=== PATIENT | female | born 2000 | race Caucasian/White ===

== ENCOUNTER 2018-02-03 11:15 | Emergency (ER) | payer OTHER, SELFPAY ==
[2018-02-03] MEDS ORDERED: CODEINE 30MG/APAP 300MG TAB ONE (15:45)
--- NOTE | 2018-02-03 16:43 | RAD REPORT ---
EXAM DESCRIPTION: RAD - Ankle Left 3 View - 02/03/2018 3:57 pm CLINICAL HISTORY: Fall, left ankle pain COMPARISON: None. FINDINGS: No acute fracture or dislocation is seen.
--- NOTE | 2018-02-03 17:09 | EDPHYS ---
Physician Documentation [facility] Name: Lashay Donato Age: 17 yrs Sex: Female : 2000 Arrival Date: 02/03/2018 Time: 11:19 Bed 10 Private MD: None, None ED Physician Jesse Ross HPI: 02/03 16:00 This 17 yrs old Female presents to ER via Ambulatory with complaints of Left pm1 ankle pain. 16:00 The patient presents with pain, that is acute. The complaints affect the left ankle. pm1 Onset: The symptoms/episode began/occurred yesterday. Context: The problem was sustained outdoors, resulted from Stepping in hole, The mechanism of injury involved hyperdorsiflexion of the affected ankle. The patient can partially bear weight on the affected extremity. Associated signs and symptoms: Pertinent negatives: calf tenderness, numbness, swelling, tingling. Modifying factors: The symptoms are alleviated by nothing, the symptoms are aggravated by weight bearing, movement. Severity of symptoms: in the emergency department the symptoms are actually worse. The patient has not experienced similar symptoms in the past. The patient has not recently seen a physician. 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 - Social history:: Smoking status: Patient/guardian denies using tobacco. - Ebola Screening: : No symptoms or risks identified at this time. ROS: 16:00 Constitutional: Negative for fever, chills, and weight loss, Eyes: Negative for injury, pm1 pain, redness, and discharge, ENT: Negative for injury, pain, and discharge, Neck: Negative for injury, pain, and swelling, Cardiovascular: Negative for chest pain, palpitations, and edema, Respiratory: Negative for shortness of breath, cough, wheezing, and pleuritic chest pain, Abdomen/GI: Negative for abdominal pain, nausea, vomiting, diarrhea, and constipation, Back: Negative for injury and pain. 16:00 Skin: Negative for injury, rash, and discoloration, Neuro: Negative for headache, weakness, numbness, tingling, and seizure. 16:00 MS/extremity: Positive for pain, of the left Achilles. Exam: 16:00 Constitutional: This is a well developed, well nourished patient who is awake, alert, pm1 and in no acute distress. Head/Face: Normocephalic, atraumatic. Neck: Trachea midline, no thyromegaly or masses palpated, and no cervical lymphadenopathy. Supple, full range of motion without nuchal rigidity, or vertebral point tenderness. No Meningismus. Chest/axilla: Normal chest wall appearance and motion. Nontender with no deformity. No lesions are appreciated. Cardiovascular: Regular rate and rhythm with a normal S1 and S2. No gallops, murmurs, or rubs. Normal PMI, no JVD. No pulse deficits. Respiratory: Lungs have equal breath sounds bilaterally, clear to auscultation and percussion. No rales, rhonchi or wheezes noted. No increased work of breathing, no retractions or nasal flaring. Back: No spinal tenderness. No costovertebral tenderness. Full range of motion. Skin: Warm, dry with normal turgor. Normal color with no rashes, no lesions, and no evidence of cellulitis. 16:00 Musculoskeletal/extremity: Extremities: grossly normal except: noted in the left Achilles: tenderness, There is no evidence of decreased ROM, deformity, Circulation is intact in all extremities. 16:00 Neuro: Orientation: is normal, Motor: moves all fours. Vital Signs: 11:36 BP 141 / 69; Pulse 72; Resp 20; Temp 97.5; Pulse Ox 98% on R/A; Weight 72.57 kg; Height aj 5 ft. 5 in. (165.10 cm); 16:44 BP 101 / 67; Pulse 61; Resp 18; Pulse Ox 99% ; sv 11:36 Body Mass Index 26.63 (72.57 kg, 165.10 cm) aj Procedures: 17:00 Splinting: Splint applied to left ankle using Air Cast, applied by nurse. Examined by pm1 sc, post splint application: neurovascular intact, 2+ distal pulses palpable, brisk capillary refill noted, Patient tolerated well. MDM: 15:36 Patient medically screened. pm1 17:06 Data reviewed: vital signs. Data interpreted: Pulse oximetry: on room air is 99 %. pm1 Interpretation: normal. Counseling: I had a detailed discussion with the patient and/or guardian regarding: the historical points, exam findings, and any diagnostic results supporting the discharge/admit diagnosis, radiology results, the need for outpatient follow up, a orthopedic surgeon, to return to the emergency department if symptoms worsen or persist or if there are any questions or concerns that arise at home. 02/03 15:52 Order name: Ankle Left 3 View; Complete Time: 16:56 EDNV 02/03 15:40 Order name: Crutches; Complete Time: 17:31 pm1 02/03 15:40 Order name: Aircast Ankle Splint; Complete Time: 17:31 pm1 Administered Medications: 15:47 Drug: Tylenol #3 (300 mg-30 mg) 1 tablet Route: PO; aa5 17:31 Follow up: Response: No adverse reaction sv Disposition: 19:18 Co-signature as Attending Physician, Jesse Ross MD I agree with the assessment and kdr plan of care. Disposition: 02/03/18 17:08 Discharged to Home. Impression: Strain of Achilles tendon. - Condition is Stable. - Discharge Instructions: Cast or Splint Care, Crutch Use, Ankle Pain. - Prescriptions for Naprosyn 500 mg Oral Tablet - take 1 tablet by ORAL route 2 times per day take with food; 30 tablet. Tylenol- Codeine #3 300-30 mg Oral Tablet - take 1 tablet by ORAL route every 6 hours As needed; 15 tablet. - Work release form, Medication Reconciliation Form, Thank You Letter, Prescription Opioid Use form. - Follow up: Emergency Department; When: As needed; Reason: Worsening of condition. Follow up: Casper Brar MD; When: 2 - 3 days; Reason: Recheck today's complaints, Continuance of care, Re-evaluation by your physician. - Problem is new. - Symptoms have improved. Signatures: Dispatcher [employer] [facility] Maggy Tompkins RN RN sv Myers, Amanda, RN RN aj Rittger, Kevin, MD MD kdr Calderon, Audri, RN RN aa5 Martín Michael NP RESIDENTIAL REAL ESTATE ASSISTANT pm1 Corrections: (The following items were deleted from the chart) 15:52 15:41 Ankle Right 3 View+RAD.RAD.BRZ ordered. [facility] 17:11 17:08 02/03/2018 17:08 Discharged to Home. Impression: Strain of Achilles tendon. pm1 Condition is Stable. Forms are Medication Reconciliation Form, Thank You Letter, Antibiotic Education, Prescription Opioid Use. Follow up: Emergency Department; When: As needed; Reason: Worsening of condition. Follow up: Private Physician; When: 2 - 3 days; Reason: Recheck today's complaints, Continuance of care, Re-evaluation by your physician. Problem is new. Symptoms have improved. pm1 17:32 17:11 02/03/2018 17:08 Discharged to Home. Impression: Strain of Achilles tendon. sv Condition is Stable. Discharge Instructions: Ankle Pain, Crutch Use, Cast or Splint Care. Prescriptions for Naprosyn 500 mg Oral Tablet - take 1 tablet by ORAL route 2 times per day take with food; 30 tablet, Tylenol-Codeine #3 300-30 mg Oral Tablet - take 1 tablet by ORAL route every 6 hours As needed; 15 tablet. and Forms are Medication Reconciliation Form, Thank You Letter, Prescription Opioid Use. Follow up: Emergency Department; When: As needed; Reason: Worsening of condition. Follow up: Dr. Casper Brar; When: 2 - 3 days; Reason: Recheck today's complaints, Continuance of care, Re-evaluation by your physician. Problem is new. Symptoms have improved. pm1
--- NOTE | 2018-02-03 17:09 | ER ---
Nurse's Notes [facility] Name: Lashay Donato Age: 17 yrs Sex: Female : 2000 Arrival Date: 02/03/2018 Time: 11:19 Bed 10 Private MD: None, None Diagnosis: Strain of Achilles tendon Presentation: 02/03 11:34 Presenting complaint: Patient states: Reports pain to heel and posterior left ankle aj after stepping into a hole today. Patient reports discomfort to Achilles tendon. Transition of care: patient was not received from another setting of care. Onset of symptoms was February 03, 2018. Care prior to arrival: None. 11:34 Method Of Arrival: Ambulatory aj 11:34 Acuity: FARAZ 4 aj 14:50 Risk Assessment: Do you want to hurt yourself or someone else? Patient reports no aa5 desire to harm self or others. Initial Sepsis Screen: Does the patient meet any 2 criteria? No. Patient's initial sepsis screen is negative. Does the patient have a suspected source of infection? No. Patient's initial sepsis screen is negative. Triage Assessment: 11:36 General: Appears in no apparent distress. comfortable, Behavior is calm, cooperative, aj appropriate for age. Neuro: Level of Consciousness is awake, alert, obeys commands, Oriented to person, place, time, situation, Appropriate for age. Respiratory: Airway is patent Respiratory effort is even, unlabored, Respiratory pattern is regular, symmetrical. Derm: Skin is pink, warm \T\ dry. normal. 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 - Social history:: Smoking status: Patient/guardian denies using tobacco. - Ebola Screening: : No symptoms or risks identified at this time. Screenin:50 Abuse screen: Denies threats or abuse. Nutritional screening: No deficits noted. aa5 Tuberculosis screening: No symptoms or risk factors identified. Fall Risk None identified. Assessment: 14:50 General: Appears comfortable, Behavior is calm, cooperative. Pain: Complains of pain in aa5 left Achilles Pain currently is 8 out of 10 on a pain scale. Quality of pain is described as tender, Is continuous, Aggravated by increased activity, weight bearing. Neuro: Level of Consciousness is awake, alert, obeys commands, Oriented to person, place, time, situation. Cardiovascular: Heart tones S1 S2 present Rhythm is regular. Respiratory: Airway is patent Respiratory effort is even, unlabored, Respiratory pattern is regular, symmetrical. GI: No signs and/or symptoms were reported involving the gastrointestinal system. : No signs and/or symptoms were reported regarding the genitourinary system. EENT: No signs and/or symptoms were reported regarding the EENT system. Derm: Skin is pink, warm \T\ dry. Musculoskeletal: Range of motion: intact in all extremities. 16:44 Reassessment: Patient appears in no apparent distress at this time. No changes from sv previously documented assessment. Patient and/or family updated on plan of care and expected duration. Pain level reassessed. Patient is alert, oriented x 3, equal unlabored respirations, skin warm/dry/pink. 17:31 Reassessment: Patient appears in no apparent distress at this time. Patient and/or sv family updated on plan of care and expected duration. Pain level reassessed. Patient is alert, oriented x 3, equal unlabored respirations, skin warm/dry/pink. Vital Signs: 11:36 BP 141 / 69; Pulse 72; Resp 20; Temp 97.5; Pulse Ox 98% on R/A; Weight 72.57 kg; Height aj 5 ft. 5 in. (165.10 cm); 16:44 BP 101 / 67; Pulse 61; Resp 18; Pulse Ox 99% ; sv 11:36 Body Mass Index 26.63 (72.57 kg, 165.10 cm) aj ED Course: 11:19 Patient arrived in ED. mr 11:20 None, None is Private Physician. mr 11:36 Triage completed. aj 11:36 Arm band placed on left wrist. Patient placed in waiting room, Patient notified of wait aj time. 14:50 Patient has correct armband on for positive identification. aa5 14:51 Kathryn Ramirez, JOSH is Primary Nurse. aa5 15:05 Martín Michael NP is PHCP. pm1 15:05 Jesse Ross MD is Attending Physician. pm1 15:53 X-ray completed. Portable x-ray completed in exam room. Patient tolerated procedure bb2 well. 15:54 Ankle Left 3 View In Process Unspecified. EDMS 17:11 Casper Brar MD is Referral Physician. pm1 17:25 Crutch training done. Air stirrup applied to left ankle. sv 17:31 No provider procedures requiring assistance completed. Patient did not have IV access sv during this emergency room visit. Administered Medications: 15:47 Drug: Tylenol #3 (300 mg-30 mg) 1 tablet Route: PO; aa5 17:31 Follow up: Response: No adverse reaction sv Outcome: 17:08 Discharge ordered by . pm1 17:32 Discharged to home via wheelchair, with crutches, with family. sv 17:32 Condition: stable 17:32 Discharge instructions given to patient, Instructed on discharge instructions, follow up and referral plans. no drinking with medication, no driving heavy equipment, medication usage, crutch walking, Demonstrated understanding of instructions, follow-up care, medications, crutch walking, Prescriptions given X 2. 17:32 Patient left the ED. sv Signatures: Dispatcher [employer] [facility] Maggy Tompkins, RN Etelvina Ramirez RN Jaimie Zavaleta Audri RN JOSH aa5 Martín Michael, SHAINA LEVEL VIAL MARKER pm1 Maria G Momin bb2
== END 2018-02-03 17:32 | disposition home or self-care (01) ==
LOC: ER 11:15
DX: S86.012A Strain of left Achilles tendon, initial encounter (principal); W17.89XA Other fall from one level to another, initial encounter; Y93.9 Activity, unspecified
CPT/HCPCS: 99284

== ENCOUNTER 2018-11-09 02:09 | Emergency (ER) | payer SELFPAY ==
[2018-11-09 02:55] LABS: Absolute Monocytes 0.6 K/uL (0.1-1.3); Eosinophils % 10.9 % (0-4.4); Hematocrit 39.7 % (36.0-45.0); Lymphocytes % 39.9 % (15.3-44.8); MPV 8.6 fL (7.6-11.3); Monocytes % 8.3 % (3.3-12.3); RBC Red Blood Cell Count 4.47 M/uL (3.86-4.86)
[2018-11-09] MEDS ORDERED: KETOROLAC 30 MG/ML INJ ONE (03:02)
[2018-11-09 03:04] LABS: Barbiturates NEGATIVE (NEGATIVE); Benzodiazepines NEGATIVE (NEGATIVE); Cocaine NEGATIVE (NEGATIVE); METHAMPHETAM NEGATIVE (NEGATIVE); Methadone NEGATIVE (NEGATIVE); Opiates NEGATIVE (NEGATIVE); Phencyclidine NEGATIVE (NEGATIVE); THC Cannibis NEGATIVE (NEGATIVE)
[2018-11-09 03:17] LABS: ALT/SGPT 21 U/L (12-78); AST/SGOT 13 U/L (15-37); Albumin 4.1 g/dL (3.4-5.0); Alkaline Phosphatase 62 U/L (45-117); BUN Blood Urea Nitrogen 11 mg/dL (7-18); Bicarbonate 27 mmol/L (21-32); Bilirubin Direct < 0.1 mg/dL (0-0.2); Bilirubin Total 0.3 mg/dL (0.2-1.0); Glucose Level 117 mg/dL (74-106); Lipase 99 U/L (73-393); Potassium 3.7 mmol/L (3.5-5.1); Protein, Total 7.3 g/dL (6.4-8.2); Sodium Level 141 mmol/L (136-145)
--- NOTE | 2018-11-09 04:08 | ER ---
Nurse's Notes [facility] Name: Lashay Donato Age: 18 yrs Sex: Female : 2000 Arrival Date: 11/09/2018 Time: 02:13 Bed 18 Private MD: None, None Diagnosis: Palpitations;Temporomandibular joint disorder, unspecified;Upper abdominal pain, unspecified Presentation: 11/09 02:23 Presenting complaint: Patient states: RUQ abd cramping intermittent X2 days. pt c/o ak1 palpitations. pt stated she woke up with her "jaw locked". Transition of care: patient was not received from another setting of care. Onset of symptoms was November 09, 2018. Risk Assessment: Do you want to hurt yourself or someone else? Patient reports no desire to harm self or others. Initial Sepsis Screen: Does the patient meet any 2 criteria? No. Patient's initial sepsis screen is negative. Does the patient have a suspected source of infection? No. Patient's initial sepsis screen is negative. Care prior to arrival: None. 02:23 Method Of Arrival: Ambulatory ak1 02:23 Acuity: FARAZ 4 ak1 Triage Assessment: 02:25 General: Appears in no apparent distress. Behavior is cooperative. 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 - Social history:: Smoking status: Patient/guardian denies using tobacco. - Ebola Screening: : No symptoms or risks identified at this time. Screenin:28 Abuse screen: Denies threats or abuse. Denies injuries from another. Nutritional ak1 screening: No deficits noted. Tuberculosis screening: No symptoms or risk factors identified. Fall Risk None identified. Assessment: 02:30 General: Appears in no apparent distress. comfortable, Behavior is calm, cooperative, rr5 appropriate for age. Pain: Complains of pain in abdomen (RUQ) Pain does not radiate. Pain currently is 7 out of 10 on a pain scale. Quality of pain is described as crampy, Pain began 2-3 days ago. Is intermittent. Neuro: Level of Consciousness is awake, alert, obeys commands, Oriented to person, place, time, situation, Appropriate for age. Cardiovascular: Reports palpitations, since last attack 2200 last night lasted 10-15 seconds Capillary refill < 3 seconds Patient's skin is warm and dry. Respiratory: Airway is patent Respiratory effort is even, unlabored, Respiratory pattern is regular, symmetrical. GI: Abdomen is flat, Bowel sounds present X 4 quads. Abd is soft and non tender. : EENT: Reports unable to open fully her mouth.. Derm: Skin is intact, Skin temperature is warm Reports nail injury 2 days ago during nail cleaning. Musculoskeletal: Capillary refill < 3 seconds, Range of motion: intact in all extremities, limited in all extremities. 03:30 Reassessment: Patient appears in no apparent distress at this time. Patient is alert, rr5 oriented x 3, equal unlabored respirations, skin warm/dry/pink. Patient states feeling better. Patient states symptoms have improved. Pain: Complains of pain in RUQ Pain does not radiate. Pain currently is 3 out of 10 on a pain scale. Quality of pain is described as crampy, Pain began 2-3 days ago. Is intermittent. 04:20 Reassessment: Patient appears in no apparent distress at this time. Patient is alert, rr5 oriented x 3, equal unlabored respirations, skin warm/dry/pink. discharge instruction given and explained without complaints made. Patient states feeling better. Patient states symptoms have improved. Vital Signs: 02:25 BP 148 / 71; Pulse 82; Resp 16; Temp 98.6(O); Pulse Ox 100% on R/A; Weight 70.31 kg ak1 (R); Height 5 ft. 5 in. (165.10 cm) (R); Pain 7/10; 03:00 BP 129 / 77; Pulse 74; Resp 16; Pulse Ox 99% ; rr5 04:20 BP 123 / 71; Pulse 75; Resp 17; Pulse Ox 99% ; rr5 02:25 Body Mass Index 25.79 (70.31 kg, 165.10 cm) ak1 ED Course: 02:13 Patient arrived in ED. es 02:14 None, None is Private Physician. es 02:17 Glenn Quinones, RN is Primary Nurse. rr5 02:25 Triage completed. ak1 02:25 Arm band placed on Patient placed in an exam room, on a stretcher, on pulse oximetry, ak1 Patient notified of wait time. 02:28 Patient has correct armband on for positive identification. Bed in low position. Call ak1 light in reach. Side rails up X 1. Pulse ox on. NIBP on. 02:29 Justin Lozano MD is Attending Physician. tw4 02:50 Inserted saline lock: 20 gauge in right forearm, using aseptic technique. Blood rr5 collected. 03:00 media monitor on. rr5 04:22 No provider procedures requiring assistance completed. IV discontinued, intact, rr5 bleeding controlled, No redness/swelling at site. Pressure dressing applied. Administered Medications: 02:52 Drug: TORadol 30 mg Route: IVP; Site: right forearm; rr5 04:23 Follow up: Response: No adverse reaction rr5 Outcome: 04:07 Discharge ordered by . tw4 04:22 Discharged to home ambulatory. rr5 04:22 Condition: stable 04:22 Discharge instructions given to patient, Instructed on discharge instructions, follow up and referral plans. medication usage, Demonstrated understanding of instructions, follow-up care, medications, Prescriptions given X 1. 04:24 Patient left the ED. rr5 Signatures: Ciera Parada Amber RN RN ak1 Justin Lozano MD MD tw4 Glenn Quinones RN RN rr5
--- NOTE | 2018-11-09 04:08 | EDPHYS ---
Physician Documentation [facility] Name: Lashay Donato Age: 18 yrs Sex: Female : 2000 Arrival Date: 11/09/2018 Time: 02:13 Bed 18 Private MD: None, None ED Physician Justin Lozano HPI: 11/09 06:31 This 18 yrs old Female presents to ER via Ambulatory with complaints of tw4 Abdominal Pain, unablle to open mouth wide, heart raceing. 06:31 The patient presents with abdominal pain in the upper abdomen. Onset: The tw4 symptoms/episode began/occurred just prior to arrival, and improved. The symptoms do not radiate. Associated signs and symptoms: Pertinent positives: palpitations. The symptoms are described as dull. Modifying factors: The symptoms are alleviated by nothing, the symptoms are aggravated by nothing. Severity of pain: At its worst the pain was mild in the emergency department the pain has resolved. The patient has not experienced similar symptoms in the past. CLINIC ASSISTANT: 02:25 LMP 10/30/2018 ak1 Historical: - Allergies: 02:25 NKA; ak1 - Home Meds: 02:25 None [Active]; ak1 - PMHx: 02:25 None; ak1 - PSHx: 02:25 None; ak1 - Immunization history:: Adult Immunizations up to date. - Social history:: Smoking status: Patient/guardian denies using tobacco. - Ebola Screening: : No symptoms or risks identified at this time. ROS: 06:31 Constitutional: Negative for fever, chills, and weight loss, Eyes: Negative for injury, tw4 pain, redness, and discharge, Respiratory: Negative for shortness of breath, cough, wheezing, and pleuritic chest pain, Back: Negative for injury and pain, MS/Extremity: Negative for injury and deformity, Skin: Negative for injury, rash, and discoloration, Neuro: Negative for headache, weakness, numbness, tingling, and seizure. 06:31 Cardiovascular: Positive for palpitations, Negative for chest pain, edema, orthopnea. 06:31 Abdomen/GI: Positive for abdominal pain, Negative for nausea and vomiting, nausea, vomiting, and diarrhea, nausea, vomiting, diarrhea, abdominal cramps, anorexia, dysphagia, hematemesis, black/tarry stool, rectal pain, rectal bleeding, bowel incontinence. Exam: 06:31 Constitutional: This is a well developed, well nourished patient who is awake, alert, tw4 and in no acute distress. Head/Face: Normocephalic, atraumatic. Chest/axilla: Normal chest wall appearance and motion. Nontender with no deformity. No lesions are appreciated. Cardiovascular: Regular rate and rhythm with a normal S1 and S2. No gallops, murmurs, or rubs. Normal PMI, no JVD. No pulse deficits. Respiratory: Lungs have equal breath sounds bilaterally, clear to auscultation and percussion. No rales, rhonchi or wheezes noted. No increased work of breathing, no retractions or nasal flaring. Abdomen/GI: Soft, non-tender, with normal bowel sounds. No distension or tympany. No guarding or rebound. No evidence of tenderness throughout. Back: No spinal tenderness. No costovertebral tenderness. Full range of motion. MS/ Extremity: Pulses equal, no cyanosis. Neurovascular intact. Full, normal range of motion. Neuro: Awake and alert, GCS 15, oriented to person, place, time, and situation. Cranial nerves II-XII grossly intact. Motor strength 5/5 in all extremities. Sensory grossly intact. Cerebellar exam normal. Normal gait. Vital Signs: 02:25 BP 148 / 71; Pulse 82; Resp 16; Temp 98.6(O); Pulse Ox 100% on R/A; Weight 70.31 kg ak1 (R); Height 5 ft. 5 in. (165.10 cm) (R); Pain 7/10; 03:00 BP 129 / 77; Pulse 74; Resp 16; Pulse Ox 99% ; rr5 04:20 BP 123 / 71; Pulse 75; Resp 17; Pulse Ox 99% ; rr5 02:25 Body Mass Index 25.79 (70.31 kg, 165.10 cm) ak1 MDM: 02:29 Patient medically screened. tw4 06:33 Differential diagnosis: appendicitis, bowel obstruction, cholecystitis, Cholelithiasis, tw4 Hepatitis, Peritonitis, Ureterolithiasis, urinary tract infection. Data reviewed: vital signs, nurses notes. Data interpreted: air sampling and monitoring:. Counseling: I had a detailed discussion with the patient and/or guardian regarding: the historical points, exam findings, and any diagnostic results supporting the discharge/admit diagnosis. Special discussion: Based on the patient's Hx, exam, and Dx evaluation, there is no indication for emergent surgery or inpatient Tx. It is understood by the patient/guardian that if the Sx's persist or worsen they need to return immediately for re-evaluation. I discussed with the patient/guardian in detail that at this point there is no indication for admission to the hospital. It is understood, however, that if the symptoms persist or worsen the patient needs to return immediately for re-evaluation. 11/09 02:30 Order name: Basic Metabolic Panel; Complete Time: 04:03 11/09 04:03 Interpretation: Normal except: GLUC 117; GFR 88. 11/09 02:30 Order name: CBC with Diff; Complete Time: 04:03 11/09 04:03 Interpretation: Normal except: RDW 12.0; EOSINOPHIL % 10.9; VERO% 39.9. 11/09 02:30 Order name: Creatinine for Radiology; Complete Time: 04:03 11/09 04:03 Interpretation: Within normal limits. 11/09 02:30 Order name: Hepatic Function; Complete Time: 04:03 11/09 04:03 Interpretation: Normal except: AST 13. 11/09 02:30 Order name: Lipase; Complete Time: 04:03 11/09 04:03 Interpretation: Within normal limits: LIP 99. 11/09 02:30 Order name: Urine Drug Screen; Complete Time: 04:03 11/09 02:30 Order name: IV Saline Lock; Complete Time: 02:57 11/09 02:30 Order name: Labs collected and sent; Complete Time: 02:57 11/09 02:30 Order name: EKG - Nurse/Tech; Complete Time: 02:46 11/09 03:46 Order name: Urine Dipstick--Ancillary (enter results) 11/09 03:46 Order name: Urine --Ancillary (enter results) EC:31 Rate is 80 beats/min. Rhythm is regular with Occasional PVCs. QRS [place] is Normal. GA tw4 interval is normal. QRS interval is normal. QT interval is normal. T waves are Normal. No ST changes noted. Clinical impression: Sinus arrythmia. Interpreted by me. Reviewed by me. Administered Medications: 02:52 Drug: TORadol 30 mg Route: IVP; Site: right forearm; rr5 04:23 Follow up: Response: No adverse reaction rr5 Disposition: 11/09/18 04:07 Discharged to Home. Impression: Palpitations, Temporomandibular joint disorder, unspecified, Upper abdominal pain, unspecified. - Condition is Stable. - Discharge Instructions: Abdominal Pain, Adult, Palpitations. - Prescriptions for Bentyl 20 mg Oral Tablet - take 1 tablet by ORAL route every 6 hours As needed; 20 tablet. - Medication Reconciliation Form, Thank You Letter, Antibiotic Education, Prescription Opioid Use form. - Follow up: Private Physician; When: Upon discharge from the Emergency Department; Reason: If symptoms return, Recheck today's complaints, Continuance of care. - Problem is new. - Symptoms have improved. Signatures: Dispatcher [employer] EDMS Sonja Peterson RN RN ak1 Justin Lozano MD MD tw4 Glenn Quinones RN RN rr5 Corrections: (The following items were deleted from the chart) 04:24 04:07 11/09/2018 04:07 Discharged to Home. Impression: Palpitations; Temporomandibular rr5 joint disorder, unspecified; Upper abdominal pain, unspecified. Condition is Stable. Forms are Medication Reconciliation Form, Thank You Letter, Antibiotic Education, Prescription Opioid Use. Follow up: Private Physician; When: Upon discharge from the Emergency Department; Reason: If symptoms return, Recheck today's complaints, Continuance of care. Problem is new. Symptoms have improved. tw4
[2018-11-09 05:07] LABS: Urine Blood NEGATIVE (NEG); Urine Glucose NEGATIVE (NEG); Urine Protein NEGATIVE (NEG); Urine Specific Gravity 1.025 (1.005-1.030)
--- NOTE | 2018-11-09 10:57 | EKG ---
Test Date: 2018-11-09 Test Time: 02:35:41 Food Analyst: ROSIE MEASUREMENT RESULTS: Intervals: Rate: 80 AZ: 154 QRSD: 90 QT: 352 QTc: 405 Brady: P: 62 AZ: 154 QRS: 81 T: 55 INTERPRETIVE STATEMENTS: Sinus rhythm with sinus arrhythmia with occasional premature ventricular complexes Otherwise normal ECG Compared to ECG 05/12/2013 09:10:19 Ventricular premature complex(es) now present Electronically Signed On 11-09-18 10:56:28 [employer] by Bryan Lynn
== END 2018-11-09 04:24 | disposition home or self-care (01) ==
LOC: ER 02:09
DX: R10.10 Upper abdominal pain, unspecified (principal); R00.2 Palpitations; M26.609 Unspecified temporomandibular joint disorder, unspecified side
CPT/HCPCS: 36415; 80048; 80076; 80307; 81003; 81025; 83690; 85025; 93005; 96374; 99284

== ENCOUNTER 2019-04-16 22:28 | Emergency (ER) | payer SELFPAY ==
[2019-04-16] MEDS ORDERED: MORPHINE 4 MG/ML SYR ONE (23:04)
[2019-04-16] MEDS ORDERED: ONDANSETRON 4 MG/2 ML VIAL ONE (23:04)
[2019-04-16 23:20] LABS: Urine Blood NEGATIVE (NEG); Urine Glucose NEGATIVE (NEG); Urine Protein NEGATIVE (NEG); Urine pH 7.5 (5.0-7.0)
[2019-04-16 23:25] LABS: Urine Bacteria <20 /HPF (<20); Urine Culture Reflex Order NOT NEEDED; Urine RBC <5 /HPF (NONE SEEN)
[2019-04-16 23:40] LABS: Absolute Lymphocytes (CBC) 2.7 K/uL (0.7-4.9); Basophils % 0.8 % (0-1.3); Hematocrit 39.2 % (36.0-45.0); Lymphocytes % 40.2 % (15.3-44.8); MPV 9.1 fL (7.6-11.3); RBC Red Blood Cell Count 4.39 M/uL (3.86-4.86)
[2019-04-16 23:59] LABS: ALT/SGPT 22 U/L (12-78); AST/SGOT 17 U/L (15-37); Albumin 4.5 g/dL (3.4-5.0); Alkaline Phosphatase 69 U/L (45-117); BUN Blood Urea Nitrogen 8 mg/dL (7-18); Bicarbonate 27 mmol/L (21-32); Bilirubin Direct < 0.1 mg/dL (0-0.2); Bilirubin Total 0.2 mg/dL (0.2-1.0); Glucose Level 76 mg/dL (74-106); Lipase 105 U/L (73-393); Potassium 3.4 mmol/L (3.5-5.1); Protein, Total 8.1 g/dL (6.4-8.2); Sodium Level 140 mmol/L (136-145)
[2019-04-17 00:45] LABS: Blood Morphology Comment NOT SEEN (NOT SEEN); Platelet Estimate ADEQ; Urine White Blood Cell Casts OK
--- NOTE | 2019-04-17 02:15 | EDPHYS ---
Physician Documentation [facility] Name: Lashay Donato Age: 18 yrs Sex: Female : 2000 Arrival Date: 04/16/2019 Time: 22:36 Bed 8 Private MD: ED Physician Derik Armenta HPI: 04/17 00:23 This 18 yrs old Female presents to ER via Ambulatory with complaints of jr8 Abdominal Pain. 00:23 The patient presents with abdominal pain in the periumbilical area. Onset: The jr8 symptoms/episode began/occurred gradually, 3 day(s) ago. The symptoms radiate to back. Associated signs and symptoms: Pertinent positives: nausea. The symptoms are described as shooting, stabbing. Modifying factors: The symptoms are alleviated by nothing, the symptoms are aggravated by nothing. Severity of pain: At its worst the pain was moderate in the emergency department the pain is unchanged. The patient has not experienced similar symptoms in the past. The patient has not recently seen a physician. Historical: - Allergies: 04/16 22:58 NKA; ea - Home Meds: 22:58 None [Active]; ea - PMHx: 22:58 None; ea - PSHx: 22:58 None; ea - Immunization history:: Adult Immunizations up to date. - Social history:: Smoking status: Patient/guardian denies using tobacco. - Ebola Screening: : No symptoms or risks identified at this time. ROS: 04/17 00:23 Eyes: Negative for injury, pain, redness, and discharge, ENT: Negative for injury, jr8 pain, and discharge, Neck: Negative for injury, pain, and swelling, Cardiovascular: Negative for chest pain, palpitations, and edema, Respiratory: Negative for shortness of breath, cough, wheezing, and pleuritic chest pain, Back: Negative for injury and pain, MS/Extremity: Negative for injury and deformity, Skin: Negative for injury, rash, and discoloration, Neuro: Negative for headache, weakness, numbness, tingling, and seizure. Abdomen/GI: Positive for abdominal pain, nausea, Negative for vomiting, diarrhea, constipation, abdominal cramps, abdominal distension, anorexia, dysphagia, hematemesis, black/tarry stool, rectal pain, rectal bleeding, bowel incontinence, flatulence. Exam: 00:23 Eyes: Pupils equal round and reactive to light, extra-ocular motions intact. Lids and jr8 lashes normal. Conjunctiva and sclera are non-icteric and not injected. Cornea within normal limits. Periorbital areas with no swelling, redness, or edema. ENT: Nares patent. No nasal discharge, no septal abnormalities noted. Tympanic membranes are normal and external auditory canals are clear. Oropharynx with no redness, swelling, or masses, exudates, or evidence of obstruction, uvula midline. Mucous membranes moist. Neck: Trachea midline, no thyromegaly or masses palpated, and no cervical lymphadenopathy. Supple, full range of motion without nuchal rigidity, or vertebral point tenderness. No Meningismus. Cardiovascular: Regular rate and rhythm with a normal S1 and S2. No gallops, murmurs, or rubs. Normal PMI, no JVD. No pulse deficits. Respiratory: Lungs have equal breath sounds bilaterally, clear to auscultation and percussion. No rales, rhonchi or wheezes noted. No increased work of breathing, no retractions or nasal flaring. Back: No spinal tenderness. No costovertebral tenderness. Full range of motion. Skin: Warm, dry with normal turgor. Normal color with no rashes, no lesions, and no evidence of cellulitis. MS/ Extremity: Pulses equal, no cyanosis. Neurovascular intact. Full, normal range of motion. Neuro: Awake and alert, GCS 15, oriented to person, place, time, and situation. Cranial nerves II-XII grossly intact. Motor strength 5/5 in all extremities. Sensory grossly intact. Cerebellar exam normal. Normal gait. 00:23 Abdomen/GI: Inspection: abdomen appears normal, Bowel sounds: active, all quadrants, Palpation: soft, in all quadrants, mild abdominal tenderness, in the umbilical area, suprapubic area and right lower quadrant, mass, is not appreciated, rebound tenderness, is not appreciated, voluntary guarding, is not appreciated, involuntary guarding, is not appreciated, no appreciated organomegaly, Indicators: McBurney's point is not tender, Nassar's sign is negative, Rovsing's sign is negative, Liver: tenderness, is not appreciated. Vital Signs: 04/16 22:58 BP 143 / 74; Pulse 73; Resp 18; Temp 97.8; Pulse Ox 100% ; Weight 70.31 kg; Height 5 ea ft. 5 in. (165.10 cm); Pain 7/10; 23:00 BP 112 / 76; Pulse 68; Resp 18; Pulse Ox 98% ; ea 04/17 00:00 BP 117 / 85; Pulse 70; Resp 18; Pulse Ox 98% on R/A; ea 02:39 BP 124 / 77; Pulse 94; Resp 16; Pulse Ox 100% on R/A; Pain 7/10; lp1 02:59 BP 126 / 75; Pulse 90; Resp 16; Pulse Ox 97% on R/A; lp1 04/16 22:58 Body Mass Index 25.79 (70.31 kg, 165.10 cm) ea MDM: 04/16 22:42 Patient medically screened. jr8 04/17 02:12 Data reviewed: vital signs, nurses notes, lab test result(s), radiologic studies, CT jr8 scan, and as a result, I will discharge patient. Data interpreted: Pulse oximetry: on room air is 98 %. Interpretation: normal. Counseling: I had a detailed discussion with the patient and/or guardian regarding: the historical points, exam findings, and any diagnostic results supporting the discharge/admit diagnosis, lab results, radiology results, the need for outpatient follow up, a family practitioner, to return to the emergency department if symptoms worsen or persist or if there are any questions or concerns that arise at home. Response to treatment: the patient's symptoms have markedly improved after treatment. Special discussion: Based on the patient's Hx, exam, and Dx evaluation, there is no indication for emergent surgery or inpatient Tx. It is understood by the patient/guardian that if the Sx's persist or worsen they need to return immediately for re-evaluation. 04/16 22:58 Order name: Basic Metabolic Panel; Complete Time: 00:17 04/16 22:58 Order name: CBC with Diff; Complete Time: 00:49 04/16 22:58 Order name: Creatinine for Radiology; Complete Time: 00:17 04/16 22:58 Order name: Hepatic Function; Complete Time: 00:17 04/16 22:58 Order name: Lipase; Complete Time: 00:17 04/16 22:58 Order name: Urine Microscopic Only; Complete Time: 23:28 04/16 23:12 Order name: Urine Dipstick--Ancillary (enter results); Complete Time: 23:28 [facility] 04/16 23:12 Order name: Urine --Ancillary (enter results); Complete Time: 23:28 [facility] 04/16 23:28 Order name: CT Abd/Pelvis - IV Contrast Only [facility] 04/17 00:24 Order name: CBC Smear Scan; Complete Time: 00:49 EDMS 04/16 22:58 Order name: IV Saline Lock; Complete Time: 23:32 [facility] 04/16 22:58 Order name: Labs collected and sent; Complete Time: 23:32 [facility] 04/16 22:58 Order name: Urine Test (obtain specimen); Complete Time: 23: [facility] 04/16 22:58 Order name: Urine Dipstick-Ancillary (obtain specimen); Complete Time: 23:09 Administered Medications: 04/16 23:24 Drug: Zofran 4 mg Route: IVP; Site: left antecubital; ea 04/17 00:02 Follow up: Response: No adverse reaction; Marked relief of symptoms 04/16 23:24 Drug: morphine 4 mg Route: IVP; Site: left antecubital; ea 04/17 00:02 Follow up: Response: No adverse reaction; Pain is decreased ea 02:26 Drug: morphine 4 mg Route: IVP; Site: left antecubital; lp1 03:00 Follow up: Response: Pain is decreased lp1 02:26 Drug: Zofran 4 mg Route: IVP; Site: left antecubital; lp1 03:00 Follow up: Response: No adverse reaction lp1 Disposition: 09:27 Co-signature as Attending Physician, Derik Armenta MD I agree with the assessment and clarissa plan of care. Disposition: 04/17/19 02:13 Discharged to Home. Impression: Enteritis. - Condition is Stable. - Discharge Instructions: Viral Gastroenteritis, Adult. - Prescriptions for Bentyl 20 mg Oral Tablet - take 1 tablet by ORAL route every 6 hours As needed; 20 tablet. promethazine 25 mg Oral Tablet - take 1 tablet by ORAL route every 6 hours As needed; 20 tablet. - Work release form, Medication Reconciliation Form, Thank You Letter, Antibiotic Education, Prescription Opioid Use form. - Follow up: Private Physician; When: 5 - 6 days; Reason: Recheck today's complaints, Continuance of care, Re-evaluation by your physician. - Problem is new. - Symptoms have improved. Signatures: Dispatcher [employer] EDDerik Mendoza MD MD cha Pena, Laura, RN RN lp1 Be Easton PA PA jr8 Rhonda Garza RN RN ea Corrections: (The following items were deleted from the chart) 03:00 02:13 04/17/2019 02:13 Discharged to Home. Impression: Enteritis. Condition is Stable. lp1 Forms are Medication Reconciliation Form, Thank You Letter, Antibiotic Education, Prescription Opioid Use. Follow up: Private Physician; When: 5 - 6 days; Reason: Recheck today's complaints, Continuance of care, Re-evaluation by your physician. Problem is new. Symptoms have improved. jr8
--- NOTE | 2019-04-17 02:15 | ER ---
Nurse's Notes [facility] Name: Lashay Donato Age: 18 yrs Sex: Female : 2000 Arrival Date: 04/16/2019 Time: 22:36 Bed 8 Private MD: Diagnosis: Enteritis Presentation: 04/16 22:56 Presenting complaint: Patient states: Complaining of abdominal pain for the past 3 days ea reports she took Gas X without relief. Transition of care: patient was not received from another setting of care. Onset of symptoms was April 16, 2019. Risk Assessment: Do you want to hurt yourself or someone else? Patient reports no desire to harm self or others. Initial Sepsis Screen: Does the patient meet any 2 criteria? No. Patient's initial sepsis screen is negative. Does the patient have a suspected source of infection? No. Patient's initial sepsis screen is negative. Care prior to arrival: None. 22:56 Method Of Arrival: Ambulatory ea 22:56 Acuity: FARAZ 3 ea Triage Assessment: 23:00 General: Appears in no apparent distress. Behavior is calm, cooperative, appropriate ea for age. Pain: Complains of pain in umbilical area. Neuro: Level of Consciousness is awake, alert, obeys commands, Oriented to person, place, time, situation. Cardiovascular: Patient's skin is warm and dry. Respiratory: Airway is patent Respiratory effort is even, unlabored, Respiratory pattern is regular, symmetrical. GI: Abdomen is non-distended. Derm: Skin is pink, warm \T\ dry. Historical: - Allergies: 22:58 NKA; ea - Home Meds: 22:58 None [Active]; ea - PMHx: 22:58 None; ea - PSHx: 22:58 None; ea - Immunization history:: Adult Immunizations up to date. - Social history:: Smoking status: Patient/guardian denies using tobacco. - Ebola Screening: : No symptoms or risks identified at this time. Screenin:57 Abuse screen: Denies threats or abuse. Nutritional screening: No deficits noted. ea Tuberculosis screening: No symptoms or risk factors identified. Fall Risk None identified. Assessment: 23:30 Reassessment: Patient and/or family updated on plan of care and expected duration. Pain ea level reassessed. Patient is alert, oriented x 3, equal unlabored respirations, skin warm/dry/pink. 04/17 00:30 Reassessment: Patient and/or family updated on plan of care and expected duration. Pain ea level reassessed. Patient is alert, oriented x 3, equal unlabored respirations, skin warm/dry/pink. 01:36 Reassessment: Patient and/or family updated on plan of care and expected duration. Pain ea level reassessed. Patient is alert, oriented x 3, equal unlabored respirations, skin warm/dry/pink. Awaiting on CT. 02:15 Pain: Complains of pain in abdomen. Neuro: Level of Consciousness is awake, alert, lp1 obeys commands, Oriented to person, place, time, situation. Respiratory: Respiratory effort is even, unlabored. Derm: Skin is pink, warm \T\ dry. 02:15 Reassessment: Patient aware of pending discharge. lp1 Vital Signs: 04/16 22:58 BP 143 / 74; Pulse 73; Resp 18; Temp 97.8; Pulse Ox 100% ; Weight 70.31 kg; Height 5 ea ft. 5 in. (165.10 cm); Pain 7/10; 23:00 BP 112 / 76; Pulse 68; Resp 18; Pulse Ox 98% ; ea 04/17 00:00 BP 117 / 85; Pulse 70; Resp 18; Pulse Ox 98% on R/A; ea 02:39 BP 124 / 77; Pulse 94; Resp 16; Pulse Ox 100% on R/A; Pain 7/10; lp1 02:59 BP 126 / 75; Pulse 90; Resp 16; Pulse Ox 97% on R/A; lp1 04/16 22:58 Body Mass Index 25.79 (70.31 kg, 165.10 cm) ea ED Course: 04/16 22:36 Patient arrived in ED. ag3 22:41 Be Easton PA is PHCP. jr8 22:41 Derik Armenta MD is Attending Physician. jr8 22:55 Rhonda Garza, JOSH is Primary Nurse. ea 22:57 Triage completed. ea 22:58 Arm band placed on right wrist. Patient placed in an exam room, on a stretcher, on ea pulse oximetry. 22:58 Patient has correct armband on for positive identification. Bed in low position. Call ea light in reach. 23:32 Inserted saline lock: 22 gauge in left antecubital area, using aseptic technique. Blood ag4 collected. 04/17 01:22 CT Abd/Pelvis - IV Contrast Only In Process Unspecified. EDMS 02:39 No provider procedures requiring assistance completed. lp1 02:57 Removal of peripheral IV. Catheter intact, dressing applied. ag4 02:59 IV discontinued, bleeding controlled, No redness/swelling at site. Pressure dressing lp1 applied. Administered Medications: 04/16 23:24 Drug: Zofran 4 mg Route: IVP; Site: left antecubital; ea 04/17 00:02 Follow up: Response: No adverse reaction; Marked relief of symptoms ea 04/16 23:24 Drug: morphine 4 mg Route: IVP; Site: left antecubital; ea 04/17 00:02 Follow up: Response: No adverse reaction; Pain is decreased ea 02:26 Drug: morphine 4 mg Route: IVP; Site: left antecubital; lp1 03:00 Follow up: Response: Pain is decreased 1 02:26 Drug: Zofran 4 mg Route: IVP; Site: left antecubital; lp1 03:00 Follow up: Response: No adverse reaction lp1 Outcome: 02:13 Discharge ordered by . jr8 02:59 Discharged to home ambulatory, with significant other. lp1 02:59 Condition: good 02:59 Discharge instructions given to patient, Instructed on discharge instructions, follow up and referral plans. medication usage, Demonstrated understanding of instructions, follow-up care, medications, Prescriptions given X 2. 03:00 Patient left the ED. lp1 Signatures: Dispatcher [employer] EDMS Venita Mcgraw RN RN lp1 Be Easton PA PA jr8 Rhonda Garza RN RN ea Gomez, Alice ag3 Destin Coreas ag4
[2019-04-17] MEDS ORDERED: ONDANSETRON 4 MG/2 ML VIAL ONE (02:24)
[2019-04-17] MEDS ORDERED: MORPHINE 4 MG/ML SYR ONE (02:24)
--- NOTE | 2019-04-17 13:00 | RAD REPORT ---
EXAM DESCRIPTION: CT - Abdomen Pelvis W Contrast - 04/17/2019 2:32 am CLINICAL HISTORY: Abdominal pain. COMPARISON: None. TECHNIQUE: CT scan of the abdomen and pelvis was performed with IV contrast. This exam was performed according to our departmental dose-optimization program, which includes automated exposure control, adjustment of the mA and/or kV according to patient size and/or use of iterative reconstruction techn ique. FINDINGS: The lung bases are clear. No pleural or pericardial effusions. There is no hiatal hernia. The liver, spleen, pancreas, gallbladder, adrenal glands, and kidneys are unremarkable. No urinary st ones are seen. The pelvic organs are also unremarkable. No small bowel obstruction. There are a few loops of proximal jejunum which are mildly dilated and fl uid-filled suggesting enteritis. The appendix is normal. There is no evidence of diverticulitis. No i ntraperitoneal free fluid or free air is identified. The aorta is normal caliber. No acute bony findings are seen. There is no pathologic body wall hernia . IMPRESSION: Mild enteritis of a few proximal jejunal bowel loops. Normal appendix. Electronically signed by: Kraig Wong MD 04/17/2019 1:44 AM CDT Due to temporary technical issues with the PACS/Fluency reporting system, reports are being signed by the in house radiologist as a courtesy to ensure prompt reporting. The interpreting radiologist is f dickly responsible for the content of the report.
== END 2019-04-17 03:00 | disposition home or self-care (01) ==
LOC: ER 22:28
DX: K52.9 Noninfective gastroenteritis and colitis, unspecified (principal)
CPT/HCPCS: 36415; 74177; 80048; 80076; 81003; 81015; 81025; 83690; 85025; 96374; 96375; 99284; J2405; Q9967